=== PATIENT | male | born 1985 | race Caucasian/White ===

== ENCOUNTER 2024-11-11 09:11 | Outpatient (AMB) | payer OTHER, SELFPAY ==
--- NOTE | 2024-11-11 09:16 | A.OFFVIS_ITS ---
Vital Signs 11/11/24 09:19 Height 6 ft 2 in Weight 328 lb BMI 42.1 Pulse 57 Intake Visit Reasons: bleeding hemorroids Intake Note: Patient is seen in office for evaluation of bleeding hemorrhoids. Pt c/o: couple of yrs with bleeding in the toilet and spontaneously, will used preparation H with some relief, constipation, straining ref. 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 He says that he would have frequent bleeding with bowel movements because of his hemorrhoids for the past 2-3 years. He says he had long history of chronic constipation. He denies any significant swelling of his hemorrhoids although does state that these often get painful as well. He is morbidly obese. He said he was recently seen by an inspector fibrous wallboard but he is unclear as to why. [facility] Medical History Bleeding hemorrhoids Surgical History Hx of wisdom tooth extraction History of dental surgery Review of Systems Const Denies chills and Denies fever(s) Card Denies chest pain, Denies dyspnea and Denies dyspnea on exertion Resp Denies cough, Denies dyspnea and Denies dyspnea on exertion GI Denies hematochezia and Denies change in bowel habits Denies hematuria and Denies difficulty urinating Musc Denies back pain and Denies limited range of motion Neuro Denies focal weakness and Denies convulsions Psych Denies depression and Denies mood swings Physical Exam Vital Signs: Last Vital Signs Pulse 57 11/11/24 09:19 BMI result Body Mass Index 42.1 Const General: comfortable and no acute distress Nutritional Appearance: obese Orientation/consciousness: patient oriented x3 Neck Neck: Yes no lymphadenopathy Resp Auscultation: clear to auscultation bilaterally Cardio Rhythm: regular rhythm GI Other: Large external hemorrhoid on the left on rectal exam Palpation (GI): Soft to palpation, nontender and no guarding Neuro General: patient oriented x3 Office Procedures Anoscopy He was in marcio-knife position. The anoscope was gently inserted. A full examination of the anal canal was done. There was note of a large hemorrhoidal column, a mix of internal external on the left side. This seemed to bleed easily. There were no other obvious lesions. There was no fissure or ulceration. There was no active bleeding. There was no induration digital exam. [id number] Assessment & Plan Assessment & Plan (1) Bleeding hemorrhoids: Code(s): K64.9 - Unspecified hemorrhoids Category: Medical Plan: He did have this large hemorrhoidal column, a mix of internal external on the left. I explained to him the option of proceeding with hemorrhoidectomy. I explained the technique for exam under anesthesia and hemorrhoidectomy. I reviewed the risks including but not limited to bleeding, infections, postop pain, as well as the benefits and alternatives. I explained to him what to expect postoperatively. 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 I have recommended for him to see a chief risk officer. He says he will talk to his and we will call me if he decides to proceed with hemorrhoidectomy. I also advised him on the benefits of weight loss. His body mass index is 42. Coding Level of Care Code New Pt Level 4 (23218) Diagnoses Bleeding hemorrhoids K64.9 CPT Codes Details - CPT: 04047-[id number] ([id number])
[2024-11-11 09:19] VITALS: PULSE 57; BMI 42.1
--- OUTSIDE RECORDS SUMMARY | 2024-11-11 09:47 | XMS_ITS | Clinical Summary ---
Author Organization [address] [facility] Address [address] [place] [address] Phone Care Team Providers Care Ironing Pleater Name Role Phone Santos Castro Primary Care Provider [phone] Encounters Date Type Department Care Team Description 09/01/2024 Telephone Gastroenterology - [place] [facility] [address] [facility] [address] [place] [address] Nikkie Jain MD Appointment from Last 3 Months Social History Tobacco Use Types Packs/Day Years Used Date Smoking Tobacco: Never Assessed Sex and Gender Information Value Date Recorded Sex Assigned at Not on file Legal Sex Male 9:01 AM EST Gender Identity Not on file Sexual Orientation Not on file Plan of Treatment Health Maintenance Due Date Last Done Comments DTaP,Tdap,and Td Vaccines (1 - Tdap) 2005 Hepatitis B Vaccines (1 of 3 - 19+ 3-dose series) 2005 COVID-19 Vaccine (2023-2 5 season) 2024 Influenza Vaccine (#1) 2024 Cholesterol Screening (Lipid Panel) 09/01/2024 Depression Screening 09/01/2024 HIV Screening 09/01/2024 Hepatitis C Screening 09/01/2024 Social Influencers of Health Screening 09/01/2024 HIB Vaccines Aged Out No longer eligi ble based on patient's age to complete this topic HPV Vaccines Aged Out No longer eligi ble based on patient's age to complete this topic Hepatitis A Vaccines Aged Out No long er eligible based on patient's age to complete this topic IPV Vaccines Aged Out No longer eligi ble based on patient's age to complete this topic MMR Vaccines Aged Out No longer eligi ble based on patient's age to complete this topic Meningococcal ACWY Vaccine Aged Out N o longer eligible based on patient's age to complete this topic Meningococcal B Vaccine Aged Out No l onger eligible based on patient's age to complete this topic Pneumococcal Vaccine: Pediat rics (0 to 5 Years) and At-Risk Patients (6 to 64 Years) Aged Out No longer eligible b ased on patient's age to complete this topic RSV Immunization Patients Un ada 20 months Aged Out No longer eligible b ased on patient's age to complete this topic Varicella Vaccines Aged Out No longer eligible based on patient's age to complete this topic Insurance DEVENDRA BRUNSON [id number] [facility] [address] [place] [address] Care Teams Ironing Pleater Relationship Specialty Start Date End Date Santos Castro PA [address] [place] [phone] PCP - General Physician Mold Shifter 09/01/24
== END 2024-11-11 09:51 | disposition home or self-care (01) ==
LOC: HO.HGS 09:12
PROVIDERS: PCP Physician Assistant Medical; Visit Provider Surgery
DX: K64.9 Unspecified hemorrhoids (principal)
CPT/HCPCS: 46600; 99204

== ENCOUNTER → 2024-11-11 09:11 | Outpatient (BNVA) | payer OTHER, SELFPAY | PROVIDERS: PCP Physician Assistant Medical; Visit Provider Surgery | DX: K64.9 Unspecified hemorrhoids (principal) | CPT/HCPCS: 46600 ==